=== PATIENT | male | born 1955 | race Two or more races ===

== ENCOUNTER 2017-03-07 14:07 | Emergency (ER) | payer SELFPAY ==
[~2017-03-07] VITALS: Ht 165.1 cm; Wt 74.0 kg
[2017-03-07] MEDS ORDERED: ACETAMINOPHEN 325MG TABLET ONE (18:04)
[2017-03-07] MEDS ORDERED: KETOROLAC 60MG/2ML VIAL IM ONE (19:00)
[2017-03-07 19:45] VITALS: BP 148/78
== END 2017-03-07 19:53 | disposition home or self-care (01) ==
LOC: ER 14:07
DX: J11.1 Influenza due to unidentified influenza virus with other respiratory manifestations (principal)
CPT/HCPCS: 71045; 87804; 96372; 99285; J1885

== ENCOUNTER 2018-10-30 20:31 | Emergency (ER) | payer BC, OTHER ==
[~2018-10-30] VITALS: Ht 165.1 cm; Wt 73.0 kg
[2018-10-30] MEDS ORDERED: AMLO2.5T45 PO (21:06)
[2018-10-30] MEDS ORDERED: ATOR10TA69 PO (21:06)
[2018-10-30] MEDS ORDERED: DICYCLOMINE 10 MG/5 ML ORAL SYR PO STA (21:36)
[2018-10-30] MEDS ORDERED: MAGNESIUM/ALUMINUM HYDROXIDE/SIMETHICONE 30ML UDC PO STA (21:36)
[2018-10-30] MEDS ORDERED: VISCOUS LIDOCAINE 2% 15 ML UDC PO STA (21:36)
[2018-10-30] MEDS ORDERED: ONDANSETRON HCL 4MG/2ML INJ IV STA (21:36)
[2018-10-30] MEDS ORDERED: SODIUM CHLORIDE 0.9% 1,000 ML IV ONE (21:36)
[2018-10-30 22:12] LABS: HEMATOCRIT. 45.1 % (42.0-52.0); HEMOGLOBIN. 15.1 g/dL (14.0-18.0); MEAN CORPUSCULAR VOLUME 86.7 fL (80.0-94.0); MEAN PLATELET VOLUME 7.2 fl (7.4-10.4); PLATELET 233 x1000/uL (130-400); RED CELL DISTRIBUTION WIDTH 13.7 % (11.6-14.6)
[2018-10-30 22:19] LABS: CHLORIDE 104 mEq/L (98-107)
[2018-10-30 22:44] LABS: PLATELET ESTIMATE NORMAL
[2018-10-30 23:48] VITALS: BP 150/76
== END 2018-10-30 23:49 | disposition home or self-care (01) ==
LOC: ER 20:31
DX: R42 Dizziness and giddiness (principal); R11.2 Nausea with vomiting, unspecified; E78.00 Pure hypercholesterolemia, unspecified; I10 Essential (primary) hypertension; Z79.899 Other long term (current) drug therapy
CPT/HCPCS: 36415; 71045; 80053; 83690; 85025; 93005; 96361; 96374; 99284; J2405; J7030

== ENCOUNTER 2019-11-06 00:34 | Emergency (ER) | payer BC, OTHER ==
[~2019-11-06] VITALS: Ht 165.1 cm; Wt 75.0 kg
[~2019-11-06 00:34] MED LIST: AMLO2.5T45 PO; ATOR10TA69 PO
[2019-11-06] MEDS ORDERED: KETOROLAC 30MG/ML VIAL IM ONE (01:15)
[2019-11-06 02:15] VITALS: BP 160/85
== END 2019-11-06 02:23 | disposition home or self-care (01) ==
LOC: ER 00:34
DX: M54.30 Sciatica, unspecified side (principal); M54.5 Low back pain; I10 Essential (primary) hypertension; E78.00 Pure hypercholesterolemia, unspecified
CPT/HCPCS: 96372; 99283; J1885

== ENCOUNTER 2023-10-17 11:20 | Emergency (ER) | payer BC, OTHER ==
[~2023-10-17] VITALS: Ht 170.2 cm; Wt 74.8 kg
[2023-10-17 11:36] VITALS: O2SAT 98
[2023-10-17] MEDS ORDERED: METH-653 MT (12:33)
[2023-10-17] MEDS ORDERED: IBUP-2029 MT (12:33)
[2023-10-17] MEDS: METHOCARBAMOL 500MG TABLET PO ONE (12:47)
[2023-10-17] MEDS: KETOROLAC 30MG/ML VIAL IM ONE (12:47)
[2023-10-17 13:05] VITALS: BP 158/80; PULSE 63; RESP 18; TEMP 98.2
== END 2023-10-17 13:06 | disposition home or self-care (01) ==
LOC: ER 11:49
DX: S43.492A Other sprain of left shoulder joint, initial encounter (principal); I10 Essential (primary) hypertension; W18.39XA Other fall on same level, initial encounter; Y93.89 Activity, other specified; Y92.89 Other specified places as the place of occurrence of the external cause; Y99.8 Other external cause status
CPT/HCPCS: 99283; 73030; 96372; J1885

== ENCOUNTER 2024-02-25 11:30 | Emergency (ER) | payer OTHER ==
[~2024-02-25] VITALS: Ht 172.7 cm; Wt 82.0 kg
[~2024-02-25 11:30] MED LIST changes: +IBUP-2029 MT; +METH-653 MT
[2024-02-25 11:47] VITALS: TEMP 98.3; O2SAT 95
[2024-02-25] MEDS: CYCLOBENZAPRINE 10MG TABLET PO ONE (13:16)
[2024-02-25] MEDS: ACETAMINOPHEN 325MG TABLET PO ONE (13:16)
[2024-02-25] MEDS: KETOROLAC 30MG/ML VIAL IM ONE (13:16)
[2024-02-25] MEDS: LIDOCAINE 5% PATCH TOP SCH (13:17)
[2024-02-25] MEDS ORDERED: NAPR-681 MT (13:28)
[2024-02-25 14:05] VITALS: BP 159/64; PULSE 88; RESP 16; O2SAT 95
== END 2024-02-25 14:06 | disposition home or self-care (01) ==
LOC: ER 11:46
DX: M54.50 Low back pain, unspecified (principal); I10 Essential (primary) hypertension; Z79.1 Long term (current) use of non-steroidal anti-inflammatories (NSAID); M54.30 Sciatica, unspecified side
CPT/HCPCS: 99284; 96372; J1885